=== PATIENT | male | born 1950 | race African-American/Black ===

== ENCOUNTER 2017-03-18 16:01 | Emergency (ER) | payer SELFPAY ==
[2017-03-18] MEDS ORDERED: NS 0.9% 1000 ML* 1,000 ML IV ONE ×2 (16:23→16:27)
[2017-03-18 16:52] LABS: ABS Basophils 0 10^3/ul (0-0.2); ABS Eosinophils 0 10^3/ul (0-0.6); ABS Lymphocytes 1.2 10^3/ul (1.0-4.8); ABS Monocytes 0.5 10^3/ul (0-0.8); ABS Neutrophils 2.9 10^3/ul (1.5-7.7); ABS Nucleated RBC 0.01 10^3/ul; Hematocrit 50 % (42-52); Lymphocyte % 25.5 % (25-47); Mean Corpuscular HGB Conc 34 g/dl (31-36); Mean Corpuscular Hemoglobin 30 pg (27-31); Mean Corpuscular Volume 88 fL (80-94); Mean Platelet Volume 7 um3 (7.4-10.4); Nucleated Red Blood Cells % 0.2; Platelet Count 216 10^3/ul (150-450); Red Cell Distribution Width 13 % (10.5-15); White Blood Count 4.6 10^3/ul (3.5-10.8)
[2017-03-18 18:27] VITALS: BP 109/67
--- NOTE | 2017-03-18 19:21 | ED ---
Raj Ivey Gabriel, scribed for James Emerson MD on 03/18/17 at 1633 . Altered Mental Status - HPI Summary HPI Summary: This patient is a 66 year old M BIBA to [facility] after an unresponsive episode at the bar. During this episode he was was not responding and urinated on himself so someone at the bar called the ambulance. Patient reports incontinence, weakness, and LOC. Patient denies head trauma, HE, and abd pain. He began drinking at 1100 today and said this is common behavior for him. - History Of Current Complaint Chief Complaint: EDAltMentalStatus Stated Complaint: AMS Time Seen by Provider: 03/18/17 16:17 Hx Obtained From: Patient Onset/Duration: Resolved, Suddenly Timing: Intermittent Severity Initially: Moderate Severity Currently: None Character: Responsiveness - unresponsive Associated Signs And Symptoms: Positive: Weakness. Negative: Recent Trauma - Allergies/Home Medications Allergies/Adverse Reactions: Allergies Allergy/AdvReac Type Severity Reaction Status Date / Time Codeine AdvReac Insomnia Verified 03/18/17 16:06 PMH/Surg Hx/FS Hx/Imm Hx Previously Healthy: No Endocrine/Hematology History: Denies: Hx Diabetes Cardiovascular History: Reports: Hx Hypercholesterolemia, Hx Hypertension Respiratory History: Denies: Hx Chronic Obstructive Pulmonary Disease (COPD) Infectious Disease History: No Infectious Disease History: Denies: Traveled Outside the [place] in Last 30 Days - Family History Known Family History: Negative: Hypertension - Social History Lives: Alone Alcohol Use: Daily Hx Substance Use: No Substance Use Type: Reports: None Hx Tobacco Use: No Smoking Status (MU): Never Smoked Tobacco Review of Systems Constitutional: Negative - head trauma Negative: Abdominal Pain Neurological: Other - LOC Positive: Weakness. Negative: Headache All Other Systems Reviewed And Are Negative: Yes Physical Exam - Summary Physical Exam Summary: Appearance: Well appearing, no pain distress Skin: warm, dry, reflects adequate perfusion Head/face: normal, no sign of head trauma or neck pain Eyes: EOMI, DEEP ENT: normal Neck: supple, non-tender Respiratory: CTA, breath sounds present Cardiovascular: RRR, pulses symmetrical, no murmur. Patients blood pressure is low Abdomen: non-tender, soft Bowel: present Musculoskeletal: normal, strength/ROM intact Neuro: normal, sensory motor intact, A&Ox3 Triage Information Reviewed: Yes Vital Signs On Initial Exam: Initial Vitals Temp Pulse Resp BP Pulse Ox 97.9 F 101 16 100/69 96 03/18/17 16:05 03/18/17 16:05 03/18/17 16:05 03/18/17 16:05 03/18/17 16:05 Vital Signs Reviewed: Yes - Twin Coma Scale Coma Scale Total: 15 Diagnostics - Vital Signs Vital Signs Temp Pulse Resp BP Pulse Ox 03/18/17 16:13 100 95 03/18/17 16:12 84/60 03/18/17 16:05 97.9 F 101 16 100/69 96 - Laboratory Lab Results: Lab Results 03/18/17 03/18/17 Range/Units 16:34 16:34 WBC 4.6 (3.5-10.8) 10^3/ul RBC 5.60 H (4.0-5.4) 10^6/ul Hgb 17.0 (14.0-18.0) g/dl Hct 50 (42-52) % MCV 88 (80-94) fL MCH 30 (27-31) pg MCHC 34 (31-36) g/dl RDW 13 (10.5-15) % Plt Count 216 (150-450) 10^3/ul MPV 7 L (7.4-10.4) um3 Neut % (Auto) 62.1 (38-83) % Lymph % (Auto) 25.5 (25-47) % Arthur % (Auto) 11.0 H (1-9) % Eos % (Auto) 1.0 (0-6) % Baso % (Auto) 0.4 (0-2) % Absolute Neuts (auto) 2.9 (1.5-7.7) 10^3/ul Absolute Lymphs (auto) 1.2 (1.0-4.8) 10^3/ul Absolute Monos (auto) 0.5 (0-0.8) 10^3/ul Absolute Eos (auto) 0 (0-0.6) 10^3/ul Absolute Basos (auto) 0 (0-0.2) 10^3/ul Absolute Nucleated RBC 0.01 10^3/ul Nucleated RBC % 0.2 Sodium 132 L (133-145) mmol/L Potassium 3.6 (3.5-5.0) mmol/L Chloride 101 (101-111) mmol/L Carbon Dioxide 20 L (22-32) mmol/L Anion Gap 11 (2-11) mmol/L BUN 15 (6-24) mg/dL Creatinine 1.58 H (0.67-1.17) mg/dL Est GFR ( Amer) 56.5 (>60) Est GFR (Non-Af Amer) 44.0 (>60) BUN/Creatinine Ratio 9.5 (8-20) Glucose 126 H (70-100) mg/dL Calcium 9.1 (8.6-10.3) mg/dL Result Diagrams: 03/18/17 16:34 03/18/17 16:34 Lab Statement: Any lab studies that have been ordered have been reviewed, and results considered in the medical decision making process. Re-Evaluation - Re-Evaluation First Eval Re-Evaluation Time: 17:32 Change: Improved Comment: Patient is feeling better. Altered Mental Statu Course/Dx - Course Course Of Treatment: pt is heavy drinker. "Passed out" on barstool. No fall or injury. AAO here. Clear speech. Hydrated. Labs as above. No known baseline for Cr. Suspect chronic. Demonstrates functional capacity, not requesting detox or rehab. Resources offered. Referred to [place] where he has eligibility for help with his drinking. - Diagnoses Discharge Diagnoses: Alcohol intoxication, Alcoholism Discharge - Discharge Plan Condition: Good Disposition: HOME Patient Education Materials: Alcohol Intoxication (ED) Referrals: Carina Viramontes [Primary Care Provider] - Additional Instructions: Call the [facility] in the morning. They have resources to help with your drinking. Do not drink to excess. Do not drive or use ladders/machinery. Return if worse, new symptoms or other concerns as discussed. The documentation as recorded by the Raj campuzano Gabriel accurately reflects the service I personally performed and the decisions made by me, James Emerson MD.
== END 2017-03-18 18:25 | disposition home or self-care (01) ==
LOC: ED 16:01
DX: F10.129 Alcohol abuse with intoxication, unspecified (principal); F10.20 Alcohol dependence, uncomplicated; R53.1 Weakness
CPT/HCPCS: 36415; 80048; 85025; 96360; 99282

== ENCOUNTER 2021-09-06 15:56 | Inpatient (IN) ==
[2021-09-06] MEDS ORDERED: NS 0.9% 1000 ml BAG 1,000 ML IV ONE (16:12)
[2021-09-06 16:48] LABS: ABS Lymphocytes 0.8 10^3/ul (1.0-4.8); ABS Monocytes 0.4 10^3/ul (0-0.8); ABS Neutrophils 4.1 10^3/ul (1.5-7.7); Eosinophil % 0.5 %; Hematocrit 37 % (42-52); Hemoglobin 11.3 g/dL (14.0-18.0); Lymphocyte % 15.7 %; Mean Corpuscular HGB Conc 31 g/dL (31-36); Mean Corpuscular Hemoglobin 20 pg (27-31); Mean Corpuscular Volume 64 fL (80-94); Mean Platelet Volume 8.7 fL (7.4-10.4); Nucleated Red Blood Cells % 0.1; Platelet Count 260 10^3/uL (150-450); Red Blood Count 5.67 10^6 /uL (4.18-5.48); Red Cell Distribution Width 24 % (10-15); White Blood Count 5.4 10^3/uL (3.5-10.8)
[2021-09-06 16:59] LABS: Anion Gap 9 mmol/L (2-11); CO2 Carbon Dioxide 25 mmol/L (22-32); Calcium 8.4 mg/dL (8.6-10.3); Chloride 95 mmol/L (101-111); Sodium 129 mmol/L (135-145)
[2021-09-06 17:04] LABS: Blood Urea Nitrogen 18 mg/dL (6-24); Glucose 118 mg/dL (70-100)
[2021-09-06 17:06] LABS: High Sens Troponin Baseline 25 pg/mL (<20)
[2021-09-06 18:14] LABS: Urine Appearance Cloudy; Urine Bilirubin Negative (Negative); Urine Blood 1+ (Negative); Urine Color Yellow; Urine Glucose Negative (Negative); Urine Ketones Trace (Negative); Urine Nitrite Negative (Negative); Urine Protein Negative (Negative); Urine Specific Gravity 1.003 (1.002-1.030); Urine Urobilinogen Negative (Negative)
[2021-09-06 18:17] LABS: High Sensitivity Troponin 1 Hr 27 pg/mL (<20)
[2021-09-06 18:38] LABS: Urine Bacteria 1+ (Absent); Urine Red Blood Cell 1+(3-5/hpf) (Absent); Urine Squamous Epithelial Cell Present (Absent); Urine White Blood Cell 3+(>20/hpf) (Absent)
[2021-09-06] MEDS ORDERED: cefTRIAXone 2 gm/50 mL D5W 2 GM/50 ML BAG IV ONE (18:45)
[2021-09-06 21:18] LABS: Magnesium 2.1 mg/dL (1.9-2.7)
[2021-09-06] MEDS ORDERED: Ondansetron 4 mg VIAL 2 MG/ML 2 ml VIAL IV PRN (21:55)
[2021-09-06] MEDS ORDERED: Ondansetron 4 mg VIAL 2 MG/ML 2 ml VIAL IV ONE (21:56)
[2021-09-06] MEDS ORDERED: Famotidine IV 10 MG/ML 2 ml VIAL (20 mg) IV SLOW PU ONE (21:56)
[2021-09-06 22:11] LABS: % Iron Saturation 9 % (15-55); Iron 24 ug/dL (50-212); Total Iron Binding Capacity 255 mcg/dL (250-450); Transferrin 182 mg/dL (203-362); Unsaturated Iron Binding 231 ug/dL
[2021-09-06 22:31] LABS: Ferritin 105.3 ng/mL (24-336)
[2021-09-06] MEDS: Enoxaparin 40 MG/0.4 ML SYR SUBCUT SCH (22:50)
[2021-09-06 22:57] LABS: Acetaminophen < 15 mcg/mL; Alcohol, S < 13 mg/dL (<13); Lipase 97 U/L (11.0-82.0)
[2021-09-06 23:02] LABS: Creatine Kinase 57 U/L (10-223)
[2021-09-06 23:14] LABS: Osmolality Serum 275 mOsm/kg (275-295)
[2021-09-06] MEDS ORDERED: HYDROmorphone 1 MG/1 ML SYRINGE IV SLOW PU PRN (23:14)
[2021-09-06] MEDS ORDERED: HYDROmorphone 0.5 MG/0.5 ML SYRINGE IV SLOW PU PRN (23:14)
[2021-09-06 23:33] LABS: Urine Benzodiazepine Screen None Detected (None Detect); Urine Cannabinoids Screen None Detected (None Detect); Urine Opiates Screen None Detected (None Detect)
[2021-09-07] MEDS ORDERED: D5W 1000 ml BAG 1,000 ML IV ONE (00:29)
[2021-09-07 03:54] LABS: Potassium 3.8 mmol/L (3.5-5.0); eGFR CKD-EPI 62.4 (>60)
[2021-09-07] MEDS ORDERED: Thiamine 100 MG/ML 2 ml VIAL 100 MG, Folic Acid IV 1 MG, Multiple Vitamin IV ADULT 10 M... IV ONE (06:00)
[2021-09-07 08:18] LABS: Calcium 7.9 mg/dL (8.6-10.3); Potassium 3.6 mmol/L (3.5-5.0); eGFR CKD-EPI 66.2 (>60)
[2021-09-07] MEDS: Polyethylene Glycol 3350 17 GM PACKET PO SCH (08:26)
[2021-09-07] MEDS: Pantoprazole VIAL 40 MG VIAL IV SCH (08:26)
[2021-09-07] MEDS ORDERED: Lactated Ringers 1000 ml BAG 1,000 ML IV ONE (14:48)
[2021-09-07 15:49] LABS: Calcium 7.9 mg/dL (8.6-10.3); Potassium 3.4 mmol/L (3.5-5.0); eGFR CKD-EPI 64.9 (>60)
[2021-09-07] MEDS ORDERED: Potassium Chlor 10 meq TAB PO ONE (16:15)
[2021-09-07] MEDS: Senna TAB 8.6 mg TAB PO SCH (20:28)
[2021-09-07] MEDS: Enoxaparin 40 MG/0.4 ML SYR SUBCUT SCH (20:28)
[2021-09-07] MEDS ORDERED: Benzocaine/Menthol LOZ MT PRN (22:59)
[2021-09-08] MEDS: cefTRIAXone 2 gm/50 mL D5W 2 GM/50 ML BAG IV SCH (03:25)
[2021-09-08] MEDS: Pantoprazole VIAL 40 MG VIAL IV SCH ×2 (08:52→20:41)
[2021-09-08] MEDS: Polyethylene Glycol 3350 17 GM PACKET PO SCH (08:52)
[2021-09-08 11:08] LABS: Albumin 2.7 g/dL (3.2-5.2); Albumin/Globulin Ratio 0.9 (1-3); Globulin 3.1 g/dL (2-4); Total Bilirubin 0.4 mg/dL (0.2-1.0); Total Protein 5.8 g/dL (6.4-8.9)
[2021-09-08] MEDS ORDERED: Potassium Chlor 20 meq TAB.ER PO ONE (15:44)
[2021-09-08] MEDS ORDERED: Potassium Chloride LIQUID 20 MEQ/15 ML LIQUID PO ONE (15:50)
[2021-09-08] MEDS: Senna TAB 8.6 mg TAB PO SCH ×3 (20:41→20:45)
[2021-09-08] MEDS: Enoxaparin 40 MG/0.4 ML SYR SUBCUT SCH (20:41)
[2021-09-09] MEDS: cefTRIAXone 2 gm/50 mL D5W 2 GM/50 ML BAG IV SCH (03:21)
[2021-09-09 06:57] LABS: Potassium 3.9 mmol/L (3.5-5.0); eGFR CKD-EPI 69.1 (>60)
[2021-09-09 07:22] LABS: ABS Eosinophils 0.1 10^3/ul (0-0.6); ABS Lymphocytes 1.2 10^3/ul (1.0-4.8); ABS Monocytes 0.3 10^3/ul (0-0.8); ABS Neutrophils 2.3 10^3/ul (1.5-7.7); Eosinophil % 1.7 %; Hematocrit 30 % (42-52); Hemoglobin 9.4 g/dL (14.0-18.0); Lymphocyte % 31.6 %; Mean Corpuscular HGB Conc 31 g/dL (31-36); Mean Corpuscular Hemoglobin 20 pg (27-31); Mean Corpuscular Volume 66 fL (80-94); Mean Platelet Volume 8.7 fL (7.4-10.4); Platelet Count 228 10^3/uL (150-450); Red Blood Count 4.62 10^6 /uL (4.18-5.48); Red Cell Distribution Width 24 % (10-15); White Blood Count 3.9 10^3/uL (3.5-10.8)
[2021-09-09] MEDS: Polyethylene Glycol 3350 17 GM PACKET PO SCH (09:06)
[2021-09-09] MEDS: Pantoprazole VIAL 40 MG VIAL IV SCH ×2 (09:07→20:38)
[2021-09-09] MEDS: Senna TAB 8.6 mg TAB PO SCH (20:38)
[2021-09-09] MEDS: Enoxaparin 40 MG/0.4 ML SYR SUBCUT SCH (20:38)
[2021-09-10] MEDS: cefTRIAXone 2 gm/50 mL D5W 2 GM/50 ML BAG IV SCH (03:55)
[2021-09-10 05:33] LABS: ABS Eosinophils 0.1 10^3/ul (0-0.6); ABS Lymphocytes 1.2 10^3/ul (1.0-4.8); ABS Monocytes 0.3 10^3/ul (0-0.8); ABS Neutrophils 1.7 10^3/ul (1.5-7.7); Eosinophil % 2.2 %; Hematocrit 31 % (42-52); Hemoglobin 9.4 g/dL (14.0-18.0); Lymphocyte % 36.1 %; Mean Corpuscular HGB Conc 31 g/dL (31-36); Mean Corpuscular Hemoglobin 20 pg (27-31); Mean Corpuscular Volume 66 fL (80-94); Mean Platelet Volume 8.4 fL (7.4-10.4); Platelet Count 246 10^3/uL (150-450); Red Blood Count 4.65 10^6 /uL (4.18-5.48); Red Cell Distribution Width 25 % (10-15); White Blood Count 3.2 10^3/uL (3.5-10.8)
[2021-09-10 05:55] LABS: Calcium 8.1 mg/dL (8.6-10.3); Potassium 3.8 mmol/L (3.5-5.0); eGFR CKD-EPI 70.6 (>60)
[2021-09-10] MEDS: Polyethylene Glycol 3350 17 GM PACKET PO SCH (09:53)
[2021-09-10] MEDS: Pantoprazole VIAL 40 MG VIAL IV SCH ×2 (10:44→20:47)
[2021-09-10] MEDS ORDERED: Midazolam 10 mg/10 ml VIAL 1 mg/ml 10 ml VIAL (10 mg) ONE (15:01)
[2021-09-10] MEDS ORDERED: fentaNYL 100 mcg/2 ml 50 MCG/ML VIAL ONE (15:02)
[2021-09-10] MEDS: Enoxaparin 40 MG/0.4 ML SYR SUBCUT SCH (20:47)
[2021-09-10] MEDS: Senna TAB 8.6 mg TAB PO SCH (20:47)
[2021-09-11] MEDS: cefTRIAXone 2 gm/50 mL D5W 2 GM/50 ML BAG IV SCH (03:20)
[2021-09-11 08:12] LABS: ABS Lymphocytes 1.1 10^3/ul (1.0-4.8); ABS Monocytes 0.3 10^3/ul (0-0.8); ABS Neutrophils 1.8 10^3/ul (1.5-7.7); Eosinophil % 1.3 %; Hematocrit 30 % (42-52); Hemoglobin 9.4 g/dL (14.0-18.0); Lymphocyte % 32.6 %; Mean Corpuscular HGB Conc 32 g/dL (31-36); Mean Corpuscular Hemoglobin 21 pg (27-31); Mean Corpuscular Volume 66 fL (80-94); Mean Platelet Volume 8.1 fL (7.4-10.4); Nucleated Red Blood Cells % 0.1; Platelet Count 232 10^3/uL (150-450); Red Blood Count 4.54 10^6 /uL (4.18-5.48); Red Cell Distribution Width 25 % (10-15); White Blood Count 3.2 10^3/uL (3.5-10.8)
[2021-09-11 08:32] LABS: Anisocytosis 2+; Microcytosis 3+
[2021-09-11 08:33] LABS: Acanthocytes 1+; Hypochromasia 1+; Polychromasia 1+; Target Cells 2+; Tear Drop Cells 1+
[2021-09-11 09:01] LABS: Calcium 7.9 mg/dL (8.6-10.3); Potassium 3.8 mmol/L (3.5-5.0); eGFR CKD-EPI 75.4 (>60)
[2021-09-11] MEDS: Pantoprazole VIAL 40 MG VIAL IV SCH (10:05)
[2021-09-11] MEDS: Polyethylene Glycol 3350 17 GM PACKET PO SCH (10:06)
[2021-09-11 16:02] LABS: High Sensitivity Troponin 1 Hr 24 pg/mL (<20)
[2021-09-11] MEDS ORDERED: Iron Sucrose 200 MG in NS 0.9% 100 ml BAG 100 ML IVPB ONE (19:31)
[2021-09-11] MEDS: Senna TAB 8.6 mg TAB PO SCH (20:46)
[2021-09-11] MEDS: Enoxaparin 40 MG/0.4 ML SYR SUBCUT SCH (20:47)
[2021-09-12 05:56] LABS: Hematocrit 31 % (42-52); Hemoglobin 9.5 g/dL (14.0-18.0); Mean Corpuscular HGB Conc 30 g/dL (31-36); Mean Corpuscular Hemoglobin 20 pg (27-31); Mean Corpuscular Volume 66 fL (80-94); Mean Platelet Volume 8.5 fL (7.4-10.4); Platelet Count 264 10^3/uL (150-450); Red Blood Count 4.75 10^6 /uL (4.18-5.48); Red Cell Distribution Width 26 % (10-15); White Blood Count 3.4 10^3/uL (3.5-10.8)
[2021-09-12 11:22] VITALS: BP 144/83
[2021-09-12] MEDS: Polyethylene Glycol 3350 17 GM PACKET PO SCH (11:37)
== END 2021-09-12 15:10 | disposition home or self-care (01) | DRG 872 ==
LOC: ED 15:56 → SUATTDRO 20:37 → EDHOLD 20:37 → MED 09-07 00:07
PROVIDERS: ADMIT Internal Medicine; ATTEND Internal Medicine